=== PATIENT | male | born 1970 | race Hispanic/Latino ===

== ENCOUNTER 2016-06-05 13:00 | Emergency (ER) | payer OTHER ==
[~2016-06-05] VITALS: Ht 175.3 cm; Wt 81.8 kg
[2016-06-05 13:03] VITALS: BP 133/88; PULSE 83; RESP 16; O2SAT 99
--- NOTE | 2016-06-05 13:22 | ED.REPORT ---
HPI-Dizziness / Weakness Date of Service Jun 05, 2016 ED Provider: Earnest Hernández History of Present Illness: 45yo male with 10 days of intermittent dizziness. He reports he went to [facility] on 05/29 and 05/30, treated and released. Dizziness persists, occurs at random times, not always with movement. No headache, fever, neck pain, hearing loss. Good PO intake Nursing Notes Stated Complaint: DIZZY Chief Complaint: General Complaint Nursing Notes Reviewed: Yes Allergies: Coded Allergies: shellfish derived (Verified Allergy, Severe, Anaphylaxis, 06/05/16) Penicillins (Verified Allergy, Unknown, 06/05/16) Scheduled PRN Meclizine (Bonine) 25 Mg Tab.chew 25 MG PO TID PRN PRN For Dizziness General Time Seen by MD: 13:11 Chief Complaint Dizzy Hx Obtained From: Patient Arrived By: Walk-in Onset Occurred: 1 week ago Context of Onset: At rest, Spontaneous Symptom Duration: Waxes and wanes Location: : No pain Radiation: Does not radiate Severity: Current: No pain currently Severity: Maximum: No pain Recent Healthcare: Recent doctor visit, Recent testing Similar Sx Previous: Yes Risk Factors CVA Risk Stratification Risk factors reviewed Past Medical History Past Medical History denies Past Surgical History denies Smoking History Current Every Day Smoker Social History Alcohol Use: Denies alcohol use Drug Use: Denies drug use Ambulatory Status Independent Review of Systems Constitutional: Denies: Chills, Fever Eyes: Denies: Blurred bilateral Ears / Nose / Throat: Denies: Ear drainage bilateral, Ear ringing bilateral Respiratory: Denies: Shortness of breath Cardiovascular: Denies: Chest pain Neurologic: Reports: Dizziness, Denies: Change LOC, Focal weakness, Headache, Lightheaded, Seizure, Slurred speech, Spinning sensation, Vision change Physical Exam Initial Vital Signs Vital Signs (First) Date Time Temp Pulse Resp B/P Pulse Ox O2 Delivery O2 Flow Rate FiO2 06/05/16 13:03 36.0 83 16 133/88 99 06/05/16 15:41 Room Air Initial VS: Vital signs normal General/Constitutional: Awake, Alert, No acute distress, Well appearing, Well nourished, Not toxic appearing Head / Eyes: Atraumatic, Normocephalic, PERRL, EOMI, No nystagmus, Conjunctiva NL Respiratory / Chest: Atraumatic, Breath sounds NL, Breath sounds = bilat, No respiratory distress Cardiovascular: Heart rate NL, Regular rhythm, Heart sounds NL Neurologic: Oriented X3, Speech NL, No motor deficits, No sensory deficits, CN II - XII intact, Cerebellar NL, Memory NL, Gait NL Neck: Supple, No meningismus, Full range of motion Abdomen: Soft, Non-tender Interpretation & Diagnostics Lab Results Interpretation Result Diagram: 06/05/16 1413 06/05/16 1413 Test 06/05/16 14:13 White Blood Count 4.8th/mm3 (3.8-10.1) Red Blood Count 4.90mil/mm3 (4.40-5.80) Hemoglobin 14.9g/dL (13.8-17.2) Hematocrit 42.5% (41.0-50.0) Mean Corpuscular Volume 86.7fL (81-100) Mean Corpuscular Hemoglobin 30.4pg (27.0-35.0) Mean Corpuscular Hemoglobin Concent 35.1% (32.0-37.0) Red Cell Distribution Width 13.0% (12.3-15.4) Platelet Count 236bil/L (150-400) Neutrophils (%) (Auto) 36.7% (40-74) Lymphocytes (%) (Auto) 56.2% (14-46) Monocytes (%) (Auto) 5.2% (4-12) Eosinophils (%) (Auto) 1.3% (0-5) Basophils (%) (Auto) 0.4% (0-3) Sodium Level 140mEq/L (134-144) Potassium Level 4.0mEq/L (3.5-5.2) Chloride Level 102mEq/L (97-108) Carbon Dioxide Level 24mmol/L (18-29) Blood Urea Nitrogen 11mg/dL (6-24) Creatinine 0.77mg/dL (0.76-1.27) Estimat Glomerular Filtration Rate 117mL/min (>59) Glucose Level 97mg/dL (60-99) Calcium Level 9.5mg/dL (8.5-10.1) Total Bilirubin 0.3mg/dL (0.0-1.2) Aspartate Amino Transf (AST/SGOT) 19U/L (0-50) Alanine Aminotransferase (ALT/SGPT) 31U/L (0-44) Alkaline Phosphatase 74U/L (25-150) Total Protein 7.6g/dL (6.4-8.4) Albumin 4.3g/dL (3.4-5.0) Thyroid Stimulating Hormone (TSH) 0.855uIU/mL (0.450-4.500) Hold Parrish Top Tube Received (Received) ECG Interpretation ECG Interpretation: 71bpm, NSR, normal ekg reviewed with Dr. Hubbard. Interpreted by: ED physician Normal ECG Interpretation: Normal rate, Normal sinus rhythm Re-Eval/Medical Decision Med Decision/Clinical Course Dizziness, undetermined etiology. No worrisome lab or exam findings. Reviewed [facility] ED visits of 05/29/16 and 05/30/16. Atypical migraine was in differential. Encouraged Pt. to f/u with [facility] to establish care and possibly be referred to neurology. S/s for which to return to ER discussed, he acknowledged understanding of treatment plan. Counseled Regarding: Diagnosis, Lab results, Need for follow-up, When/why to return to ED Patient Discharge & Departure Impression: Primary Impression: Dizziness Disposition: Home Patient Instructions: Vertigo (ED) Additional Instructions: Take meds as needed, eat sensible diet, follow up with [facility], return to ER if anything worsens. Referrals: [facility] 2-3 days recheck EDSupervising Provider for APC: Vera Hubbard MD, Christopher R PAC Jun 05, 2016 13:22
[2016-06-05 14:20] LABS: BASOPHILS % (AUTO) 0.4 % (0-3); EOSINOPHILS % (AUTO) 1.3 % (0-5); MONOCYTES % (AUTO) 5.2 % (4-12); Mean Corpuscular Hemoglobin 30.4 pg (27.0-35.0); Mean Corpuscular Volume 86.7 fL (81-100); NEUTROPHILS % (AUTO) 36.7 % (40-74); Platelet Count 236 bil/L (150-400)
[2016-06-05] MEDS ORDERED: MECL-114 PO (15:25)
[2016-06-05 15:41] VITALS: BP 119/64; PULSE 79; RESP 22; O2SAT 97
== END 2016-06-05 15:41 | disposition home or self-care (01) ==
LOC: SED 13:00
DX: R42 Dizziness and giddiness (principal); F17.200 Nicotine dependence, unspecified, uncomplicated; Z88.0 Allergy status to penicillin